=== PATIENT | male | born 1950 | race Caucasian/White ===

== ENCOUNTER → 2016-12-27 | Outpatient (CLI) | payer BC ==
[~2016-12-27] MED LIST: ASCO10003 PO; CALCTAB5 PO; FENO145T26 PO; LYSI500C2 PO; MULT-506 PO
== END | disposition home or self-care (01) ==
LOC: C.LABBC 09:04
PROVIDERS: ATTEND Urology
DX: C61 Malignant neoplasm of prostate (principal)

== ENCOUNTER → 2017-07-07 | Outpatient (CLI) | payer BC ==
[2017-07-07 10:07] LABS: ESTIMATED AVERAGE GLUCOSE 131 mg/dl; HA1C FLAG Normal (Normal)
[2017-07-07 10:09] LABS: ALT/SGPT 33 U/L (12-78); AST/SGOT 23 U/L (15-37); BLOOD UREA NITROGEN 18 mg/dl (7-18); BUN/CREATININE RATIO 14.1 (10-20); CALCIUM 8.7 mg/dl (8.5-10.1); CARBON DIOXIDE 29 mmol/L (21-32); CHLORIDE 106 mmol/L (98-107); CHOLESTEROL 209 mg/dl (0-200); GLUCOSE 100 mg/dl (70-99); POTASSIUM 4.3 mmol/L (3.5-5.1); SODIUM 139 mmol/L (136-145)
[2017-07-07 10:11] LABS: ALB/GLOB RATIO 0.9 (0.9-2); ALKALINE PHOSPHATASE 65 U/L (45-117); CHOLESTEROL/HDL RATIO 4.4; HDL CHOLESTEROL 48 mg/dl; LDL CHOLESTEROL CALCULATED 136 mg/dl; TRIGLYCERIDES 125 mg/dl (0-150); VERY LOW DENSITY LIPOPROT CALC 25 mg/dl
== END | disposition home or self-care (01) ==
LOC: C.LAB1850 08:51
PROVIDERS: ATTEND Urology
DX: E78.2 Mixed hyperlipidemia (principal); R73.01 Impaired fasting glucose

== ENCOUNTER → 2017-07-10 | Outpatient (CLI) | payer BC | END | disposition home or self-care (01) | LOC: C.LAB1850 08:41 | PROVIDERS: ATTEND Urology | DX: N52.9 Male erectile dysfunction, unspecified (principal) ==

== ENCOUNTER → 2017-08-24 | Outpatient (CLI) | payer BC ==
[~2017-08-24] MED LIST changes: +OPTIRAY 320 IV PRN
--- NOTE | 2017-08-24 08:23 | DIAGNOSTIC IMAGING REPORT ---
CHEST CT WITH CONTRAST CT DOSE: 1024.10 mGy.cm HISTORY: Surveillance study. Reported history of prostate cancer. CARCINOID TUMOR TECHNIQUE: Multiaxial CT images of the chest were performed following the intravenous administration of 93 mL Optiray 320. A dose lowering technique was utilized adhering to the principles of ALARA. COMPARISON: Bone scan 11/05/2015, CT abdomen and pelvis 07/10/2015. FINDINGS: Indeterminate 7 mm heterogeneous left thyroid nodule. Mildly prominent lymph nodes about the mediastinum are present with right hilar lymph node measuring up to 9 mm. AP window lymph nodes measure up to 11 x 9 mm. 6 mm right paratracheal lymph node noted. Heart is mildly enlarged without pericardial effusion. Thoracic aorta is normal in both course and caliber without aortic aneurysm or dissection. The opacified pulmonary arterial tree is also unremarkable. There is no pneumothorax or pleural effusion. Mild biapical pleural-parenchymal scarring. Mild centrilobular and paraseptal emphysematous changes are noted within the lung apices. Minimal dependent bibasilar atelectasis. 3 mm noncalcified pleural-based solid pulmonary nodule is present within the superior segment right lower lobe on image 130 series 6. No suspicious pulmonary nodules or masses identified. No endobronchial mass lesions identified. Fatty infiltration of the liver. Imaged upper abdominal structures are otherwise unremarkable. The soft tissues and bones are within normal limits. Postsurgical changes of the left glenoid. IMPRESSION: 1. No acute intrathoracic abnormality identified. 2. Mildly prominent mediastinal and hilar lymph nodes as above, likely physiologic. 3. Mild biapical centrilobular and paraseptal emphysematous changes. 4. 3 mm solid noncalcified pulmonary nodule of the superior segment right lower lobe. Please refer to below summary of Fleischner criteria recommendations for follow-up of incidental CT nodules (Erica Pepe, Guidelines for management of small pulmonary nodules detected on CT scans: A statement from the Fleischner Society, Radiology 237: [phone].) SOLID NODULES Solitary nodule size: <6 mm * Low risk patients: no follow-up needed * high risk patients: optional CT at 12 months Solitary nodule size: 6-8 mm * Low risk patients: follow-up at 6-12 months, then consider further follow-up at 18-24 months * high risk patients: initial follow-up CT at 6-12 months and then at 18-24 months if no change Solitary nodule size: >8 mm * either low or high risk patients - consider follow-up CT at 3 months, and/or CT-PET, and/or biopsy Multiple nodules size: <6 mm * Low risk patients: no routine follow-up * high risk patients: optional CT at 12 months Multiple nodules size: 6-8 mm * Low risk patients: follow-up at 3-6 months, then consider further follow-up at 18-24 months * high risk patients: follow-up at 3-6 months, then at 18-24 months if no change Multiple nodules size: >8 mm * Low risk patients: follow-up at 3-6 months, then consider further follow-up at 18-24 months * high risk patients: follow-up at 3-6 months, then at 18-24 months if no change Note: newly detected indeterminate nodule in persons 35 years of age or older. * Low risk patients: minimal or absent history of smoking and/or other known risk factors * high risk patients: history of smoking or of other known risk factors (e.g. first degree relative with lung cancer, or exposure to asbestos, radon, uranium) * if a nodule up to 8 mm is partly solid or is ground glass further follow-up is required after 24 months to exclude possible slow growing adenocarcinoma (ZULLY) SUBSOLID NODULES Solitary pure ground-glass nodule * nodule size <6 mm - no CT follow-up required * nodule size >=6 mm - follow-up CT at 6-12 months, then every 2 years until 5 years Solitary part-solid nodule * nodule size <6 mm - no CT follow-up required * nodule size >=6 mm - follow-up CT at 3-6 months. If unchanged, and solid component remains <6 mm, then annual follow-up for 5 years Multiple subsolid nodules * nodule size <6 mm - follow-up CT at 3-6 months, consider further follow-up at 2 and 4 years if stable * nodule size >=6 mm - follow-up CT at 3-6 months, subsequent management based on the most suspicious nodule(s) The above report was generated using voice recognition software. It may contain grammatical, syntax or spelling errors. Electronically signed by: Nathan Tariq M.D. 08/24/2017 8:22 AM Dictated Date/Time: 08/24/2017 8:06 AM
--- NOTE | 2017-08-24 08:36 | DIAGNOSTIC IMAGING REPORT ---
ABD/PELVIS IV CONTRAST ONLY HISTORY: 67 years-old Male Carcinoid tumor . COMPARISON: CT chest of same day, CT 07/10/2015 TECHNIQUE: Multiple axial CT images of the abdomen and pelvis were obtained following the intravenous administration of 93 mL Optiray 320. A dose lowering technique was used consistent with the principals of LAST. FINDINGS: Lung bases are generally clear. No pneumoperitoneum identified. Imaged inferior cardiac chambers are unremarkable. Mildly decreased attenuation of the hepatic parenchyma suggests fatty infiltration of the liver, however not definitive on this contrast-enhanced study. No focal hepatic mass lesions or intrahepatic biliary ductal dilation. Spleen, gallbladder, pancreas and adrenal glands are within normal limits. Portal vein is patent. Kidneys and ureters are unremarkable. No hydronephrosis. Urinary bladder is partially collapsed with wall thickening, likely secondary to nondistention. Prior prostatectomy. Suggested prior right inguinal hernia repair. Moderate atherosclerotic plaquing of the abdominal aorta. No bulky adenopathy. No focal bowel wall thickening or small bowel mass identified. Nondistention involves the majority of the sigmoid colon. There are a few scattered colonic diverticula present. No definite CT evidence of acute diverticulitis. Appendix appears normal. Soft tissues are within normal limits. No suspicious lytic or blastic bony lesions. Moderate facet arthrosis of the lower lumbar spine. IMPRESSION: 1. No acute intra-abdominal or intrapelvic abnormality identified. 2. Prior prostatectomy. Mild wall thickening of the urinary bladder may be secondary to nondistention, posttreatment changes or cystitis. Correlate with urinalysis. 3. No adenopathy. 4. Colonic diverticulosis without diverticulitis. The above report was generated using voice recognition software. It may contain grammatical, syntax or spelling errors. Electronically signed by: Nathan Tariq M.D. 08/24/2017 8:35 AM Dictated Date/Time: 08/24/2017 8:27 AM
== END | disposition home or self-care (01) ==
LOC: C.CTS 07:38
PROVIDERS: ATTEND Colon & Rectal Surgery
DX: D3A.00 Benign carcinoid tumor of unspecified site (principal)

== ENCOUNTER → 2018-01-05 | Outpatient (CLI) | payer BC ==
[~2018-01-05] MED LIST changes: -OPTIRAY 320 IV PRN
[2018-01-05 09:56] LABS: ALBUMIN 3.6 gm/dl (3.4-5.0); ALT/SGPT 40 U/L (12-78); AST/SGOT 29 U/L (15-37); BLOOD UREA NITROGEN 16 mg/dl (7-18); CALCIUM 9.4 mg/dl (8.5-10.1); CARBON DIOXIDE 29 mmol/L (21-32); CREATININE 1.17 mg/dl (0.60-1.40); GLUCOSE 100 mg/dl (70-99); SODIUM 138 mmol/L (136-145)
[2018-01-05 10:02] LABS: ALKALINE PHOSPHATASE 73 U/L (45-117); CHOLESTEROL 220 mg/dl (0-200); LDL CHOLESTEROL CALCULATED 134 mg/dl; TOTAL PROTEIN 7.8 gm/dl (6.4-8.2)
[2018-01-05 10:27] LABS: HEMOGLOBIN A1C 6.3 % (4.5-5.6)
== END | disposition home or self-care (01) ==
LOC: C.LAB1850 08:46
PROVIDERS: ATTEND Urology
DX: E78.2 Mixed hyperlipidemia (principal); R73.01 Impaired fasting glucose

== ENCOUNTER → 2018-05-20 | Outpatient (CLI) | payer BC | END | disposition home or self-care (01) | LOC: C.LAB1850 10:24 | PROVIDERS: ATTEND Urology | DX: C61 Malignant neoplasm of prostate (principal) ==

== ENCOUNTER → 2018-06-15 | Outpatient (CLI) | payer BC ==
[~2018-06-15] MED LIST changes: +OPTIRAY 320 IV PRN
--- NOTE | 2018-06-15 12:31 | DIAGNOSTIC IMAGING REPORT ---
CT SCAN OF THE CHEST WITH IV CONTRAST CLINICAL HISTORY: Neuroendocrine tumor. Prostate cancer. COMPARISON STUDY: Chest CT dated 08/24/2017. TECHNIQUE: Following the IV administration of 93 cc of Optiray 320, CT scan of the thorax was performed from the thoracic inlet to the upper abdomen. Images are reviewed in the axial, sagittal, and coronal planes. IV contrast was administered without complication. A dose lowering technique was utilized adhering to the principles of ALARA. CT DOSE: 1691.32 mGycm FINDINGS: Thyroid: Imaged portions of the thyroid gland are normal in size and attenuation. Thoracic aorta: The thoracic aorta is normal in caliber and demonstrates bovine variant arch anatomy. No dissection is seen. Pulmonary vasculature: The pulmonary trunk is normal in caliber. There are no filling defects identified in the central pulmonary vessels to indicate pulmonary embolus. Note that this examination was not protocoled for evaluation of the pulmonary arteries. Heart: The heart is normal in size and configuration, and without pericardial effusion. Lungs and pleural spaces: There is mild emphysematous change and biapical scarring. No airspace consolidation or pleural effusion is identified. A 2 mm right lower lobe nodule seen image #123 is unchanged, as is a 4 mm right upper lobe nodule on image #68. The trachea and central airways appear patent. Mediastinum: Scattered subcentimeter mediastinal lymph nodes are not pathologically enlarged by size criteria. Maddi: Clear. Axillae: There is no axillary lymphadenopathy. Upper abdomen: There is evidence of hepatic steatosis. There are subtle hypervascular hepatic lesions identified measuring up to 9 mm (axial images #255, #259, #266, #271, and #289). A tiny hiatal hernia is observed. Skeletal structures: No lytic or blastic bony lesions are seen. Arthritic change is seen in the shoulders, with postoperative change noted on the left. IMPRESSION: 1. There is no evidence of intrathoracic metastatic disease. 2. Emphysema. 3. No airspace consolidation or pleural effusion is identified. 4. There are numerous subtle hypervascular hepatic lesions identified, likely visualized due to the early phase of enhancement. These are indeterminant, but given the history of carcinoid tumor these are concerning for metastatic disease. 5. Additional findings as above. Electronically signed by: Krish Tyler M.D. 06/15/2018 12:30 PM Dictated Date/Time: 06/15/2018 12:17 PM
--- NOTE | 2018-06-15 13:33 | DIAGNOSTIC IMAGING REPORT ---
CT OF THE ABDOMEN AND PELVIS WITH CONTRAST CLINICAL HISTORY: Malignant neuroendocrine tumor. Prostate cancer. COMPARISON STUDY: CT of the abdomen and pelvis August 24, 2017. TECHNIQUE: Following IV administration of 93 mL of Optiray-320, axial images of the abdomen and pelvis were obtained from the lung bases to the proximal femurs. Images were reviewed in the axial, sagittal, and coronal planes. IV contrast was administered without complication. A dose lowering technique was utilized adhering to the principles of ALARA. Oral contrast was administered. FINDINGS: Please note that the chest CT will be reported separately. The multiple small hypervascular hepatic lesions measuring up to 9 mm shown on the chest CT portion of this exam are not visualized on the abdominal portion due to differences in phase of enhancement. Fatty infiltration of the liver is noted. There may be sparing within the inferior right hepatic lobe. The spleen, adrenal glands and pancreas are normal. There is no hydronephrosis or hydroureter. A few subcentimeter bilateral renal lesions are too small to characterize. No enlarged abdominal or pelvic lymph nodes are present. The patient is status post ileocecectomy. There is no evidence for a bowel obstruction. Mild bladder wall thickening is unchanged. No suspicious osseous lesions are present. Fat-containing umbilical hernia is noted. The prostate gland is not visualized and likely surgically absent. IMPRESSION: 1. Small hypervascular foci within the liver measuring up to [address] not visualized on this portion due to differences in phase of enhancement. These are indeterminate but concerning for metastatic disease given the history of neuroendocrine tumor. An MRI of the liver may be of benefit in further characterization. 2. No abdominal or pelvic lymphadenopathy. 3. No bowel obstruction status post ileocecectomy. 4. No suspicious osseous lesions. Electronically signed by: Dequan Beverly M.D. 06/15/2018 1:32 PM Dictated Date/Time: 06/15/2018 12:58 PM
== END | disposition home or self-care (01) ==
LOC: C.CTS 11:40
PROVIDERS: ATTEND Colon & Rectal Surgery
DX: Z85.9 Personal history of malignant neoplasm, unspecified (principal); J43.9 Emphysema, unspecified

== ENCOUNTER → 2018-06-25 | Outpatient (CLI) | payer BC ==
[~2018-06-25] MED LIST changes: +GADOXETATE DISODIUM (NON-WT BASED PROCEDURE) IV PRN; -OPTIRAY 320 IV PRN
--- NOTE | 2018-06-25 21:50 | DIAGNOSTIC IMAGING REPORT ---
LIVER COMBO HISTORY: 68 years-old Male HX TUMOR/LESIONS LIVER/ABDNORMAL CT patient presents with history of prostate malignancy and carcinoid tumor. History of ileocecectomy. COMPARISON: CT chest, abdomen and pelvis 06/15/2018, CT abdomen and pelvis 08/24/2017 TECHNIQUE: Multiplanar multisequence MRI of the liver was obtained both with and without the use of 10 mL Eovist. FINDINGS: The imaged lung bases appear clear. The heart appears unremarkable. Spleen, gallbladder, pancreas and adrenal glands are within normal limits. No intrahepatic or extrahepatic biliary ductal dilation. The pancreatic duct appears to be within normal limits. Mild nonspecific bilateral perinephric stranding. No aortic aneurysm. IVC is unremarkable. No pathologically enlarged lymph nodes identified. Imaged bowel appears to be within normal limits. Tiny sliding-type hilar hernia. The central canal, soft tissues and bones are within normal limits. Drop of signal within the liver on the out of phase images compatible with hepatic steatosis. Mild linear fatty sparing about the right hepatic lobe. The MRCP images are motion degraded. The common bile duct measures 4 mm. No biliary filling defects are seen. No definite foci of restricted diffusion identified within the liver. There are multiple ill-defined subcentimeter foci of arterial enhancement scattered about the right hepatic lobe measuring up to approximately 6 mm (for example see images 41 through 59 of series 1101) demonstrating isointense T1 and T2 signal. Additionally, there is only minimal enhancement seen on the portal venous phase, for example image 44. No large enhancing mass lesions are identified within the hepatic parenchyma. IMPRESSION: 1. Multiple scattered subcentimeter foci of arterial enhancement about the right hepatic lobe redemonstrated suspicious for possible hypervascular neuroendocrine metastasis. Follow-up study with octreotide scintigraphy may be considered. 2. No adenopathy identified. 3. Small sliding-type hiatal hernia. 4. Hepatic steatosis. The above report was generated using voice recognition software. It may contain grammatical, syntax or spelling errors. Electronically signed by: Nathan Tariq M.D. 06/25/2018 9:48 PM Dictated Date/Time: 06/25/2018 9:24 PM
== END | disposition home or self-care (01) ==
LOC: C.MRI 18:06
PROVIDERS: ATTEND Colon & Rectal Surgery
DX: Z85.9 Personal history of malignant neoplasm, unspecified (principal); K76.0 Fatty (change of) liver, not elsewhere classified